=== PATIENT | male | born 1980 | race Caucasian/White ===

== ENCOUNTER 2017-10-14 16:25 | Emergency (ER) | payer MEDICAID, SELFPAY ==
--- NOTE | 2017-10-14 16:52 | EDM.PDOC ---
ED HPI GENERAL MEDICAL PROBLEM - General Stated Complaint: COUGH,SOB Time Seen by Provider: 10/14/17 16:25 Source of Information: Reports: Patient, Family History Limitations: Reports: No Limitations - History of Present Illness INITIAL COMMENTS - FREE TEXT/NARRATIVE: 36 y.o.w.m came to the ed due to gen bodyache and a dry cough in the past few days with poor po intake. Pt dose not smoke or drink and does not take any drugs. Pt's mom had similar symptoms a few days ago. no N/V/D ore any acute medical issues. BP 138/80 puls 116 RR 18 Temp 36.9 pulse ox 90% on RA Onset: Gradual Onset Date: 10/11/17 Onset Time: 06:00 Duration: Day(s):, Getting Worse, Intermittent Location: Reports: Generalized Quality: Reports: Ache, Burning, Dull, Same as Previous Episode Severity: Mild Improves with: Reports: None Worsens with: Reports: None Context: Reports: Sick Contact Associated Symptoms: Reports: Cough - Related Data Allergies Allergy/AdvReac Type Severity Reaction Status Date / Time No Known Allergies Allergy Verified 07/04/16 16:44 Home Meds: Home Meds levETIRAcetam [Keppra] 500 mg PO BID 10/14/17 [History] Past Medical History Cardiovascular History: Reports: Congenital Septal Defect Psychiatric History: Reports: Anxiety - Infectious Disease History Infectious Disease History: Reports: Chicken Pox - Past Surgical History Male Surgical History: Reports: Lithotripsy (ESWL) Social & Family History - Family History Family Medical History: Noncontributory - Tobacco Use Smoking Status *Q: Never Smoker Second Hand Smoke Exposure: No - Caffeine Use Caffeine Use: Reports: Soda Other Caffeine Use: 2 liters - Recreational Drug Use Recreational Drug Use: No ED ROS GENERAL - Review of Systems Review Of Systems: See Below Constitutional: Reports: No Symptoms HEENT: Reports: No Symptoms Respiratory: Reports: Cough Cardiovascular: Reports: No Symptoms Endocrine: Reports: No Symptoms GI/Abdominal: Reports: No Symptoms : Reports: No Symptoms Musculoskeletal: Reports: No Symptoms Skin: Reports: No Symptoms Neurological: Reports: No Symptoms Psychiatric: Reports: No Symptoms Hematologic/Lymphatic: Reports: No Symptoms Immunologic: Reports: No Symptoms ED EXAM, GENERAL - Physical Exam Exam: See Below Exam Limited By: No Limitations General Appearance: Alert, WD/WN, Mild Distress Eye Exam: Bilateral Eye: Normal Inspection Ears: Normal External Exam, Normal Canal Ear Exam: Bilateral Ear: Auricle Normal Nose: Normal Inspection Throat/Mouth: Normal Gums, No Airway Compromise, Other (dry mucosal membrane) Head: Atraumatic, Normocephalic Neck: Normal Inspection, Supple, Non-Tender, Full Range of Motion Respiratory/Chest: Decreased Breath Sounds (poor insp effort), Rhonchi, Wheezing Cardiovascular: Normal Peripheral Pulses, Regular Rate, Rhythm, No Edema, No Gallop, No Rub Peripheral Pulses: 1+: Brachial (R) GI/Abdominal: Normal Bowel Sounds, Soft, Non-Tender (Male) Exam: Deferred Rectal (Males) Exam: Deferred Back Exam: Normal Inspection, Full Range of Motion Extremities: Normal Inspection, Normal Range of Motion, Non-Tender, No Pedal Edema Neurological: Alert, Oriented, CN II-XII Intact, Normal Cognition Psychiatric: Normal Affect, Normal Mood Skin Exam: Warm, Dry, Intact, Normal Color, No Rash Lymphatic: No Adenopathy Course - Vital Signs Text/Narrative:: 36 y.o.w.m came to the ed due to gen bodyache and a dry cough in the past few days with poor po intake. Pt dose not smoke or drink and does not take any drugs. Pt's mom had similar symptoms a few days ago. no N/V/D ore any acute medical issues. BP 138/80 puls 116 RR 18 Temp 36.9 pulse ox 90% on RA PE: WNWD WM with nonspecific complains Labs: WBC nl HGB elevated, Potassium 3.3 Na 139 Imaging: CXR NAD Impression: Viral syndrome, Hypokalemia, Dehydration, bronchitis (not acute) Tx: Duo neb, NS, potassium, Toradol Reexam: Improved Plan: D/C with instructions Last Recorded V/S: Last Vital Signs Temp 36.4 C 10/14/17 17:30 Pulse 93 10/14/17 19:03 Resp 18 10/14/17 19:03 BP 134/83 10/14/17 19:03 Pulse Ox 94 L 10/14/17 19:03 - Orders/Labs/Meds Orders: Active Orders 24 hr Category Date Time Status RT Aerosol Therapy [RC] ASDIRECTED Care 10/14/17 16:55 Active Chest 1V Frontal [CR] Stat Exams 10/14/17 16:53 Taken Labs: Laboratory Tests 10/14/17 10/14/17 Range/Units 17:00 17:00 WBC 9.2 (4.5-12.0) X10-3/uL RBC 4.94 (4.30-5.75) x10(6)uL Hgb 14.2 (11.5-15.5) g/dL Hct 42.2 (30.0-51.3) % MCV 85.4 (80-96) fL MCH 28.8 (27.7-33.6) pg MCHC 33.7 (32.2-35.4) g/dL RDW 12.6 (11.5-15.5) % Plt Count 415 H (125-369) X10(3)uL MPV 8.3 (7.4-10.4) fL Neut % (Auto) 67.1 (46-82) % Lymph % (Auto) 18.2 (13-37) % Sequoyah % (Auto) 8.6 (4-12) % Eos % (Auto) 4 (1.0-5.0) % Baso % (Auto) 2 (0-2) % Neut # (Auto) 6.1 (1.6-8.3) # Lymph # (Auto) 1.7 (0.6-5.0) # Sequoyah # (Auto) 0.8 (0.0-1.3) # Eos # (Auto) 0.4 (0.0-0.8) # Baso # (Auto) 0.2 (0.0-0.2) # Sodium 144 (135-145) mmol/L Potassium 3.3 L (3.5-5.3) mmol/L Chloride 106 (100-110) mmol/L Carbon Dioxide 28 (21-32) mmol/L BUN 10 (7-18) mg/dL Creatinine 0.9 (0.70-1.30) mg/dL Est Cr Clr Drug Dosing TNP Estimated GFR (MDRD) > 60 (>60) BUN/Creatinine Ratio 11.1 (9-20) Glucose 121 H (80-116) mg/dL Calcium 9.5 (8.6-10.2) mg/dL Meds: Medications Discontinued Medications Generic Name Dose Route Start Last Admin Trade Name Freq PRN Reason Stop Dose Admin Albuterol/Ipratropium 3 ml 10/14/17 16:55 10/14/17 17:15 Duoneb 3.0-0.5 Mg/3 Ml NEB 10/14/17 16:56 3 ml ONETIME ONE Administration Sodium Chloride 1,000 mls @ 999 mls/hr 10/14/17 16:53 10/14/17 17:15 Normal Saline IV 10/14/17 17:53 999 mls/hr .BOLUS ONE Administration Ketorolac Tromethamine 30 mg 10/14/17 16:53 10/14/17 17:21 Toradol IVPUSH 10/14/17 16:54 30 mg ONETIME STA Administration Potassium Chloride 40 meq 10/14/17 18:24 10/14/17 18:37 Klor-Con M20 PO 10/14/17 18:25 40 meq ONETIME ONE Administration Sodium Chloride 10 ml 10/14/17 17:00 Saline Flush FLUSH ASDIRECTED PRN Other Departure - Departure Time of Disposition: 18:24 Disposition: Home, Self-Care 01 Condition: Good Clinical Impression: Viral syndrome, Dehydration - Discharge Information Instructions: Viral Respiratory Infection, [id number] Referrals: PCP,None [Primary Care Provider] - Forms: ED Department Discharge Additional Instructions: Please take motrin for pain, please increase warm water intake, please f/u, come back if your symptoms get worse acutely. - My Orders Last 24 Hours: My Active Orders 10/14/17 16:53 Chest 1V Frontal [CR] Stat 10/14/17 16:55 RT Aerosol Therapy [RC] ASDIRECTED - Assessment/Plan Last 24 Hours: My Active Orders 10/14/17 16:53 Chest 1V Frontal [CR] Stat 10/14/17 16:55 RT Aerosol Therapy [RC] ASDIRECTED
[2017-10-14] MEDS ORDERED: Sodium Chloride 0.9% 1,000 ML IV ONE (16:53)
[2017-10-14] MEDS ORDERED: Ketorolac 30 MG/ML SDV IVPUSH STA (16:53)
[2017-10-14] MEDS ORDERED: Albuterol/Ipratropium 3.0-0.5 MG/3 ML Neb Soln NEB ONE (16:55)
[2017-10-14] MEDS ORDERED: Sodium Chloride 0.9% 10 ML Syringe FLUSH PRN (17:00)
[2017-10-14] MEDS ORDERED: Potassium Chloride 20 MEQ Tab.ER PO ONE (18:24)
[2017-10-14 20:13] VITALS: BP 134/83
--- NOTE | 2017-10-15 11:12 | CR ---
INDICATION: Cough. CHEST: A single AP upright view of the chest was obtained 10/14/2017 - no comparisons. The heart did not appear enlarged. Evidence of exogenous obesity is noted. No consolidating pneumonia or effusion was identified. However, heavy markings at the left lung base make it difficult to entirely exclude a minimal patchy bronchopneumonia in that area - correlate clinically. IMPRESSION: 1. No definite acute process, but difficult to exclude patchy bronchopneumonia at the left lung base - correlate clinically. 2. Suggestion of minimal dextroconvex scoliosis thoracic spine. 3. Exogenous obesity. MTDD
== END 2017-10-14 19:10 | disposition home or self-care (01) ==
LOC: FB.ED 16:25
DX: E86.0 Dehydration (principal); B34.9 Viral infection, unspecified; J40 Bronchitis, not specified as acute or chronic; E87.6 Hypokalemia
CPT/HCPCS: 36415; 71045; 80048; 85025; 87804; 94640; 96361; 96374; 99283; A9270; J1885; J7040; J7620; J7030

== ENCOUNTER 2024-02-26 21:56 | Emergency (ER) | payer BC, MEDICAID ==
[2024-02-26 22:42] VITALS: BP 116/75; PULSE 79
== END 2024-02-26 22:54 | disposition home or self-care (01) ==
LOC: FB.ED 21:56
DX: S93.602A Unspecified sprain of left foot, initial encounter (principal); Z79.899 Other long term (current) drug therapy; W20.8XXA Other cause of strike by thrown, projected or falling object, initial encounter
CPT/HCPCS: 73630-LT; 99283